=== PATIENT | male | born 1960 | race Caucasian/White ===

== ENCOUNTER 2020-05-10 05:20 | Emergency (ER) | payer BC ==
[~2020-05-10] VITALS: Ht 180.3 cm; Wt 140.9 kg
[2020-05-10] MEDS ORDERED: normal saline 1000ML IV soln IV ONE (05:30)
[2020-05-10] MEDS ORDERED: ketorolac trometh inj. 60 MG/2 ML VIAL IM ONE (05:40)
[2020-05-10 06:35] VITALS: BP 131/79
== END 2020-05-10 06:37 | disposition home or self-care (01) ==
LOC: ER 05:21
DX: S46.001A Unspecified injury of muscle(s) and tendon(s) of the rotator cuff of right shoulder, initial encounter (principal); X58.XXXA Exposure to other specified factors, initial encounter; Y93.89 Activity, other specified; Y92.89 Other specified places as the place of occurrence of the external cause; Y99.8 Other external cause status; Z88.6 Allergy status to analgesic agent; Z88.5 Allergy status to narcotic agent
CPT/HCPCS: 71045; 73030; 99284